=== PATIENT | female | born 1990 | race Caucasian/White ===

== ENCOUNTER 2018-06-07 04:06 | Inpatient (IN) | payer OTHER ==
[~2018-06-07] VITALS: Ht 165.1 cm; Wt 87.0 kg
[2018-06-07 05:00] LABS: MICROSCOPIC INDICATED
[2018-06-07] MEDS ORDERED: OXYTOCIN 30U/ 0.9% NaCL 500ML 500 ML IV ONE ×3 (05:02→05:07)
[2018-06-07] MEDS ORDERED: D5%-LACTATED RINGERS 1,000 ML IV SCH (05:02)
[2018-06-07] MEDS ORDERED: LACTATED RINGERS 1,000 ML IV SCH ×2 (05:02→08:44)
[2018-06-07] MEDS ORDERED: LIDOCAINE/PF 1%, 30ML ONE (05:29)
[2018-06-07] MEDS ORDERED: SODIUM CHLORIDE FLUSH 10ML SYR IVF PRN (05:30)
[2018-06-07] MEDS ORDERED: METOCLOPRAMIDE 5 MG/ML, 2ML IVPush PRN (05:30)
[2018-06-07] MEDS ORDERED: TERBUTALINE 1 MG/ML, 1ML IVPush PRN ×2 (05:30)
[2018-06-07] MEDS ORDERED: BETAMETHASONE 6 MG/ML, 5ML IM ONE (05:30)
[2018-06-07] MEDS ORDERED: PENICILLIN GK 5,000,000 UNITS in DEXTROSE 5% 100 ML IV ONE (05:30)
[2018-06-07] MEDS ORDERED: FENTANYL PF 100 MCG/2ML IVPush PRN (05:30)
[2018-06-07] MEDS ORDERED: ALUMINUM/MAG/SIMETHICONE 30 ML UDC PO PRN (05:30)
[2018-06-07] MEDS ORDERED: FENTANYL PF 100 MCG/2ML IV PRN ×2 (05:30→10:30)
[2018-06-07] MEDS ORDERED: SODIUM CITRATE/CITRIC ACID 30 ML UDC PO PRN (05:30)
[2018-06-07] MEDS ORDERED: CALCIUM CARBONATE 500 MG TAB.CHEW PO PRN (05:30)
[2018-06-07] MEDS ORDERED: MISOPROSTOL 200 MCG TABLET ONE (05:30)
[2018-06-07] MEDS ORDERED: ONDANSETRON 2MG/ML, 2ML IVPush PRN (05:30)
[2018-06-07] MEDS ORDERED: TERBUTALINE 1 MG/ML, 1ML SQ PRN (05:30)
[2018-06-07] MEDS: BETAMETHASONE 6 MG/ML, 5ML IM SCH (05:33)
[2018-06-07 05:43] LABS: BASOPHILS # (AUTO) 0.03 x10^3/uL (0-0.1); BASOPHILS % (AUTO) 0 % (0-1); EOSINOPHILS # (AUTO) 0.06 x10^3/uL (0-0.4); EOSINOPHILS % (AUTO) 0 % (1-7); LYMPHOCYTES % (AUTO) 10 % (22-44); MD NO; MEAN CORPUSCULAR HEMOGLOBIN 30.7 pg (27.0-34.8); MEAN CORPUSCULAR HGB CONC 34.8 g/dL (32.4-35.8); MEAN CORPUSCULAR VOLUME 88.1 fL (80-100); MEAN PLATELET VOLUME 7.8 fL (7.4-10.4); MONOCYTES # (AUTO) 1.01 x10^3/uL (0.2-0.8); MONOCYTES % (AUTO) 8 % (2-9); NEUTROPHILS # (AUTO) 10.29 x10^3/uL (1.8-6.8); NEUTROPHILS % (AUTO) 82 % (42-75); PLATELET COUNT 260 x10^3/uL (130-400); RED BLOOD COUNT 4.37 x10^6/uL (3.82-5.3); RED CELL DISTRIBUTION WIDTH 12.4 % (9.6-15.2)
[2018-06-07 06:04] VITALS: BP 120/74
[2018-06-07] MEDS ORDERED: OXYTOCIN 30U/ 0.9% NaCL 500ML 500 ML IV PRN (06:17)
[2018-06-07] MEDS ORDERED: OXYTOCIN 30U/ 0.9% NaCL 500ML 500 ML ONE (07:05)
[2018-06-07] MEDS ORDERED: NEWBORN KIT ONE (07:25)
[2018-06-07] MEDS ORDERED: SODIUM CITRATE/CITRIC ACID 30 ML UDC ONE (07:32)
[2018-06-07] MEDS ORDERED: METOCLOPRAMIDE 5 MG/ML, 2ML ONE (07:32)
[2018-06-07] MEDS ORDERED: OXYTOCIN 30U/ 0.9% NaCL 500ML 500 ML IV SCH (08:44)
[2018-06-07 08:56] VITALS: BP 125/72
[2018-06-07] MEDS ORDERED: CEFAZOLIN 1,000 MG ONE (08:58)
[2018-06-07] MEDS ORDERED: OXYTOCIN 10 UNITS/ML, 1ML ONE (08:58)
[2018-06-07] MEDS ORDERED: FENTANYL PF 100 MCG/2ML ONE (08:58)
[2018-06-07] MEDS ORDERED: KETOROLAC 30 MG/1 ML ONE (08:58)
[2018-06-07] MEDS ORDERED: LACTATED RINGERS 1,000 ML IVBOLUS ONE (09:00)
[2018-06-07] MEDS ORDERED: SODIUM CITRATE/CITRIC ACID 30 ML UDC PO ONE (09:00)
[2018-06-07] MEDS ORDERED: METOCLOPRAMIDE 5 MG/ML, 2ML IV ONE (09:00)
[2018-06-07] MEDS ORDERED: MORPHINE SULFATE 4 MG/ML, 1ML IVPush PRN (10:30)
[2018-06-07] MEDS ORDERED: PROMETHAZINE 25 MG/ML, 1ML IV PRN (10:30)
[2018-06-07] MEDS ORDERED: MISOPROSTOL 200 MCG TABLET PR PRN (10:30)
[2018-06-07] MEDS ORDERED: HALOPERIDOL 5 MG/ML IV PRN (10:30)
[2018-06-07] MEDS ORDERED: EPHEDRINE 50 MG/ML, 1ML IVPush PRN (10:30)
[2018-06-07] MEDS ORDERED: ACETAMINOPHEN 325 MG TABLET PO PRN (10:30)
[2018-06-07] MEDS ORDERED: MEPERIDINE/PF 25MG/0.5ML IVPush PRN (10:30)
[2018-06-07] MEDS ORDERED: ONDANSETRON 2MG/ML, 2ML IV PRN ×2 (10:30)
[2018-06-07] MEDS ORDERED: DIPHENHYDRAMINE 50 MG/ML, 1ML IVPush PRN (10:30)
[2018-06-07] MEDS: LACTATED RINGERS 1,000 ML IV SCH ×4 (10:30→20:30)
[2018-06-07] MEDS ORDERED: OXYcodone 5 MG/5 ML ORAL.SOL UDC PO PRN (10:30)
[2018-06-07] MEDS: OXYTOCIN 30U/ 0.9% NaCL 500ML 500 ML IV SCH ×2 (10:30→20:30)
[2018-06-07] MEDS ORDERED: OXYcodone IR 5MG TABLET PO PRN (10:30)
[2018-06-07] MEDS ORDERED: morphine SULFATE 10 MG/ML, 1ML IVPush PRN (10:30)
[2018-06-07] MEDS ORDERED: EPHEDRINE 50 MG/ML, 1ML ONE (15:05)
[2018-06-07] MEDS: KETOROLAC 30 MG/1 ML IV PRN ×2 (16:30→22:46)
[2018-06-07 17:00] VITALS: BP 111/68
[2018-06-07 18:41] LABS: BASOPHILS # (AUTO) 0.02 x10^3/uL (0-0.1); BASOPHILS % (AUTO) 0 % (0-1); EOSINOPHILS % (AUTO) 0 % (1-7); LYMPHOCYTES # (AUTO) 0.66 x10^3/uL (1-3.4); LYMPHOCYTES % (AUTO) 4 % (22-44); MD NO; MEAN CORPUSCULAR HEMOGLOBIN 30.9 pg (27.0-34.8); MEAN CORPUSCULAR HGB CONC 34.8 g/dL (32.4-35.8); MEAN CORPUSCULAR VOLUME 88.8 fL (80-100); MEAN PLATELET VOLUME 7.5 fL (7.4-10.4); MONOCYTES # (AUTO) 0.68 x10^3/uL (0.2-0.8); MONOCYTES % (AUTO) 4 % (2-9); NEUTROPHILS # (AUTO) 14.98 x10^3/uL (1.8-6.8); NEUTROPHILS % (AUTO) 92 % (42-75); PLATELET COUNT 263 x10^3/uL (130-400); RED BLOOD COUNT 4.02 x10^6/uL (3.82-5.3); RED CELL DISTRIBUTION WIDTH 12.5 % (9.6-15.2)
[2018-06-07 20:00] VITALS: BP 104/64
[2018-06-07] MEDS ORDERED: DIPH,PERTUSS(ACELL),TET VAC/PF NC IM-VACC ONE ×3 (22:36→23:00)
[2018-06-07] MEDS: DOCUSATE 100 MG CAPSULE PO PRN (23:02)
[2018-06-08] VITALS: BP 115/62
[2018-06-08] MEDS: LACTATED RINGERS 1,000 ML IV SCH ×5 (02:30→18:30)
[2018-06-08 04:00] VITALS: BP 112/64
[2018-06-08] MEDS: KETOROLAC 30 MG/1 ML IV PRN (04:47)
[2018-06-08] MEDS: BETAMETHASONE 6 MG/ML, 5ML IM SCH (05:30)
[2018-06-08] MEDS: OXYTOCIN 30U/ 0.9% NaCL 500ML 500 ML IV SCH ×2 (06:30→16:30)
[2018-06-08 08:40] VITALS: BP 109/70
[2018-06-08] MEDS: PRENATAL VIT/IRON/FA 1 EACH TABLET PO SCH (09:10)
[2018-06-08] MEDS: OXYcodone IR 5MG TABLET PO PRN ×3 (09:10→23:03)
[2018-06-08] MEDS: DOCUSATE 100 MG CAPSULE PO PRN (09:10)
[2018-06-08] MEDS: IBUPROFEN 600 MG TABLET PO PRN ×3 (10:59→23:03)
[2018-06-08 22:57] VITALS: BP 106/68
[2018-06-09 00:04] VITALS: BP 96/60
[2018-06-09] MEDS: OXYcodone IR 5MG TABLET PO PRN ×5 (03:09→20:44)
[2018-06-09] MEDS: IBUPROFEN 600 MG TABLET PO PRN ×3 (06:31→18:50)
[2018-06-09 07:35] VITALS: BP 112/73
[2018-06-09] MEDS: PRENATAL VIT/IRON/FA 1 EACH TABLET PO SCH (12:27)
[2018-06-09] MEDS: DOCUSATE 100 MG CAPSULE PO PRN ×2 (12:27→20:44)
[2018-06-09 20:00] VITALS: BP 123/74
[2018-06-10] MEDS: OXYcodone IR 5MG TABLET PO PRN ×5 (00:50→21:48)
[2018-06-10] MEDS: IBUPROFEN 600 MG TABLET PO PRN ×3 (00:50→17:25)
[2018-06-10] MEDS: DOCUSATE 100 MG CAPSULE PO PRN ×2 (07:20→21:47)
[2018-06-10] MEDS: PRENATAL VIT/IRON/FA 1 EACH TABLET PO SCH (07:20)
[2018-06-10 08:28] VITALS: BP 104/70
[2018-06-10 21:50] VITALS: BP 102/64
[2018-06-11] MEDS: OXYcodone IR 5MG TABLET PO PRN ×4 (01:59→14:11)
[2018-06-11] MEDS: IBUPROFEN 600 MG TABLET PO PRN ×3 (01:59→14:11)
[2018-06-11 08:23] VITALS: BP 95/53
[2018-06-11] MEDS: DOCUSATE 100 MG CAPSULE PO PRN ×2 (08:24→10:32)
[2018-06-11] MEDS ORDERED: IBUP-1222 PO (10:14)
[2018-06-11] MEDS ORDERED: OXYC-302 PO (10:15)
[2018-06-11] MEDS: PRENATAL VIT/IRON/FA 1 EACH TABLET PO SCH (10:32)
== END 2018-06-11 14:38 | disposition home or self-care (01) | DRG 786 ==
LOC: LDOP 04:06 → LDIP 05:03 → 2NW 12:26
PROVIDERS: ADMIT Obstetrics & Gynecology; ATTEND Obstetrics & Gynecology
PROC: 10D00Z1 Extraction of Products of Conception, Low, Open Approach (ICD-10-PCS; principal; 2018-06-07)
DX: O42.013 Preterm premature rupture of membranes, onset of labor within 24 hours of rupture, third trimester (principal); O60.14X0 Preterm labor third trimester with preterm delivery third trimester, not applicable or unspecified; O76 Abnormality in fetal heart rate and rhythm complicating labor and delivery; Z37.0 Single live birth; Z3A.34 34 weeks gestation of pregnancy; Z80.3 Family history of malignant neoplasm of breast
CPT/HCPCS: 36415; 76805; 76819; 81001; 82803; 85025; 86850; 86900; 87081; 87086; 88305; 89060; 90656; 90715; G0378; J0690; J0702; J1885; J2540; J3010; J2590; J2765; J7120; Q0114